=== PATIENT | male | born 1955 | race Caucasian/White ===

== ENCOUNTER 2019-03-03 07:39 | Day surgery (SDC) | payer MEDICARE, MEDICAID ==
[~2019-03-03 07:39] MED LIST: Lactated Ringers 1,000 ML IV SCH; Lidocaine 1%/Sod Bicarbonate in NS 8.4% 1 ML Syringe IDERM PRN; Sodium Chloride 0.9% 10 ML Syringe FLUSH PRN
--- NOTE | 2019-03-03 08:04 | PCM.PREANE ---
Preanesthetic Assessment - Procedure Proposed Procedure: egd - Anesthesia/Transfusion/Family Hx Anesthesia History: Prior Anesthesia Without Reaction Family History of Anesthesia Reaction: No Transfusion History: No Prior Transfusion(s) - Review of Systems General: No Symptoms Pulmonary: No Symptoms Cardiovascular: No Symptoms Gastrointestinal: No Symptoms Neurological: No Symptoms Other: Reports: Diabetes, Thyroid Problems - Physical Assessment NPO Status Date: 03/02/19 NPO Status Time: 19:00 Vital Signs: 159/73 68 97% 16 98.2 Height: 5 ft 11 in Weight: 145.104 kg ASA Class: 3 Mental Status: Alert & Oriented x3 Airway Class: Mallampati = 2 Dentition: Reports: Missing Tooth/Teeth Thyro-Mental Finger Breadths: 3 Mouth Opening Finger Breadths: 3 ROM/Head Extension: Full Lungs: Clear to Auscultation, Normal Respiratory Effort Cardiovascular: Regular Rate, Regular Rhythm - Allergies Allergies/Adverse Reactions: Allergies Allergy/AdvReac Type Severity Reaction Status Date / Time bee venom protein (honey bee) Allergy Cannot Verified 03/02/19 13:35 Remember spider venom Allergy Cannot Verified 03/02/19 13:35 Remember - Blood Blood Available: No - Acknowledgements Anesthesia Type Planned: MAC Pt an Appropriate Candidate for the Planned Anesthesia: Yes Alternatives and Risks of Anesthesia Discussed w Pt/Guardian: Yes Pt/Guardian Understands and Agrees with Anesthesia Plan: Yes PreAnesthesia Questionnaire HEENT History: Reports: Impaired Vision Cardiovascular History: Reports: High Cholesterol, Hypertension, Other (See Below) Other Cardiovascular History: heart cath-2001 Respiratory History: Reports: None Gastrointestinal History: Reports: GERD, Other (See Below) Other Gastrointestinal History: barretts Genitourinary History: Reports: None 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 Musculoskeletal History: Reports: Fibromyalgia Neurological History: Reports: None Psychiatric History: Reports: None Endocrine/Metabolic History: Reports: Diabetes, Type II, Hypothyroidism Hematologic History: Reports: None Immunologic History: Reports: None Oncologic (Cancer) History: Reports: None Dermatologic History: Reports: None - Past Surgical History Head Surgeries/Procedures: Reports: None HEENT Surgical History: Reports: Oral Surgery Cardiovascular Surgical History: Reports: None Respiratory Surgical History: Reports: None GI Surgical History: Reports: Appendectomy, Colonoscopy, EGD Female Surgical History: Reports: None Male Surgical History: Reports: None Endocrine Surgical History: Reports: None Neurological Surgical History: Reports: None Musculoskeletal Surgical History: Reports: None Oncologic Surgical History: Reports: None Dermatological Surgical History: Reports: None - SUBSTANCE USE Smoking Status *Q: Never Smoker Tobacco Use Within Last Twelve Months: No Second Hand Smoke Exposure: No Days Per Week of Alcohol Use: 0 Recreational Drug Use History: No - HOME MEDS Home Medications: Home Meds Adrenal Energy 1 dose PO DAILY 03/02/19 [History] Aspirin [Ecotrin EC] 81 mg PO DAILY 03/02/19 [History] Cetirizine HCl [Allergy Relief] 10 mg PO DAILY 03/02/19 [History] Cholecalciferol (Vitamin D3) [Vitamin D3] 5,000 unit PO DAILY 03/02/19 [History] Esomeprazole Magnesium [Nexium] 40 mg PO DAILY 03/02/19 [History] Immune Restore 1 cap PO DAILY 03/02/19 [History] Lactobacillus Combination No.4 [Probiotic] 1 cap PO DAILY 03/02/19 [History] Lutein 10 mg PO DAILY 03/02/19 [History] Melatonin 5 mg PO BEDTIME 03/02/19 [History] Multivitamin [Daily Multiple Vitamin] 1 tab PO DAILY 03/02/19 [History] Prasterone (DHEA)/Calcium Carb [DHEA] 1 tab PO DAILY 03/02/19 [History] Pregnenolone, Micronized [Pregnenolone] 100 mg PO DAILY 03/02/19 [History] Release And Renew 1 tab PO DAILY 03/02/19 [History] Rosuvastatin Calcium 20 mg PO DAILY 03/02/19 [History] Super Artemisinin 1 dose PO DAILY 03/02/19 [History] Ubidecarenone [Coq-10] 300 mg PO DAILY 03/02/19 [History] Vitamin B Complex 1 cap PO DAILY 03/02/19 [History] Vitamin E 400 unit PO DAILY 03/02/19 [History] hydroCHLOROthiazide [Hydrochlorothiazide] 25 mg PO DAILY 03/02/19 [History] metFORMIN [Glucophage XR] 500 mg PO BID 03/02/19 [History] - CURRENT (IN HOUSE) MEDS Current Meds: Current Medications Lactated Ringer's (Ringers, Lactated) 1,000 mls @ 125 mls/hr IV ASDIRECTED TYRELL Stop: 03/03/19 23:00 Lidocaine/Sodium Bicarbonate (Buffered Lidocaine 1% In Ns 8.4%) 0.25 ml IDERM ONETIME PRN PRN Reason: Prior to IV Start Stop: 03/03/19 18:00 Sodium Chloride (Saline Flush) 10 ml FLUSH ASDIRECTED PRN PRN Reason: Keep Vein Open Stop: 03/03/19 18:00
[2019-03-03] MEDS ORDERED: Lidocaine 1% 4 ML ONE (08:30)
[2019-03-03] MEDS ORDERED: Propofol 200 MG/20 ML SDV ONE ×2 (08:30→09:21)
[2019-03-03] MEDS ORDERED: Ketamine 500 mg/10 ML MDV ONE (09:19)
--- NOTE | 2019-03-03 09:30 | PCM.OPNOTE ---
- General Post-Op/Procedure Note Date of Surgery/Procedure: 03/03/19 Operative Procedure(s): EGD with biopsy Pre Op Diagnosis: mayberry's esophagus Post-Op Diagnosis: Same Anesthesia Technique: MAC Primary Surgeon: Dima Mckinney EBL in mLs: 0 Complications: None Condition: Good
--- NOTE | 2019-03-03 09:46 | PCM48HPAN ---
Post Anesthesia Note - EVALUATION WITHIN 48HRS OF ANESTHETIC Vital Signs in Normal Range: Yes Patient Participated in Evaluation: Yes Respiratory Function Stable: Yes Airway Patent: Yes Cardiovascular Function Stable: Yes Hydration Status Stable: Yes Pain Control Satisfactory: Yes Nausea and Vomiting Control Satisfactory: Yes Mental Status Recovered: Yes Vital Signs: 131/94, 95 sats, 72 hr, 16, 97.7 0938 Last Vital Signs Temp 36.8 C 03/03/19 07:50 Pulse 68 03/03/19 07:50 Resp 16 03/03/19 07:50 BP 159/93 H 03/03/19 07:50 Pulse Ox 97 03/03/19 07:50
--- NOTE | 2019-03-04 09:17 | OR ---
DATE OF OPERATION: 03/03/2019 SURGEON: Dima Mckinney MD PREOPERATIVE DIAGNOSIS: Barrios esophagus. POSTOPERATIVE DIAGNOSIS: Barrios esophagus. OPERATION PERFORMED: Esophagogastroduodenoscopy and 4-quadrant biopsies. ANESTHESIA: IV sedation. FINDINGS: Fixed hiatal hernia with the GE junction located 35 cm in the short segment of Barrios's irregular Z-line. Four-quadrant biopsies were done there. The second portion of the duodenum, duodenal bulb, pyloric channel, antrum, body, cardia, and fundus of the stomach unremarkable. DESCRIPTION OF PROCEDURE: The patient taken to the endoscopy room, placed in a supine position, connected to monitoring equipment, given IV sedation. Placed in the left lateral position. Bite block was inserted and video Olympus gastroscope placed in the posterior oropharynx. Under direct vision, threaded past the cricopharyngeus, down the esophagus, into the stomach. Stomach was insufflated, and the scope passed through the pylorus to the second portion of the duodenum. It was slowly withdrawn showing normal 2nd portion of the duodenum, duodenal bulb, and pyloric channel. Antrum, body, and cardia of the stomach were reviewed. J-maneuver was performed showing an incompetent hiatus and large fixed hiatal hernia. Hiatal hernia pouch was unremarkable, and the GE junction did show the abnormality of typical Barrios's, but was for a short segment, and this was biopsied in 4 quadrants. No nodularity or abnormality was noted in the Barrios's. The rest of the esophagus was unremarkable. The patient tolerated the procedure and was sent to recovery room in a stable condition. Specimen sent to pathology in a labeled container, and the patient will be followed up in the clinic. ESTIMATED BLOOD LOSS: MMODAL /[id number]
== END 2019-03-03 10:15 | disposition home or self-care (01) ==
LOC: JD.SDS 07:39
PROVIDERS: ATTEND Surgery
DX: K22.70 Barrett's esophagus without dysplasia (principal); K21.0 Gastro-esophageal reflux disease with esophagitis; E03.9 Hypothyroidism, unspecified; E11.9 Type 2 diabetes mellitus without complications; I10 Essential (primary) hypertension; E78.5 Hyperlipidemia, unspecified; Z90.49 Acquired absence of other specified parts of digestive tract; Z79.84 Long term (current) use of oral hypoglycemic drugs; Z79.899 Other long term (current) drug therapy; Z79.82 Long term (current) use of aspirin; Z91.030 Bee allergy status; Z91.038 Other insect allergy status
CPT/HCPCS: 43239; J2001; J2704; J7120; 00731